=== PATIENT | female | born 1990 | race American Indian/Alaskan Native ===

== ENCOUNTER 2016-07-17 11:08 | Outpatient (CLI) | payer BC, MEDICAID ==
[2016-07-17 12:14] VITALS: BP 113/61
[2016-07-17 13:11] LABS: Bacteria,Urine 1+ /HPF (Negative); Bilirubin,Urine NEG (Negative); Blood,Urine NEG (Negative); Ketones,Urine NEG (Negative); Leukocyte Esterase,Urine LG (Negative); Mucus,Urine FEW /HPF; Nitrite,Urine NEG (Negative); Protein,Urine <15 mg/dL mg/dL (Negative); Urobilinogen,Urine < 2.0 mg/dL (<2.0)
[2016-07-17] MEDS ORDERED: LACTATED RINGERS 500 ML IV ONE (14:00)
== END 2016-07-17 13:47 | disposition home or self-care (01) ==
LOC: TRG 11:08
PROVIDERS: ATTEND Obstetrics & Gynecology
DX: O47.9 False labor, unspecified (principal); Z3A.00 Weeks of gestation of pregnancy not specified
CPT/HCPCS: 81001; 87086

== ENCOUNTER 2016-09-12 00:33 | Outpatient (CLI) | payer BC, MEDICAID | END 2016-09-12 02:50 | disposition home or self-care (01) | LOC: TRG 00:33 | PROVIDERS: ATTEND Obstetrics & Gynecology | DX: O62.9 Abnormality of forces of labor, unspecified (principal); Z3A.38 38 weeks gestation of pregnancy | CPT/HCPCS: 59025 ==

== ENCOUNTER 2016-09-19 09:50 | Inpatient (IN) | payer BC, MEDICAID ==
[2016-09-19] MEDS ORDERED: LACTATED RINGERS 1,000 ML ONE (10:13)
[2016-09-19] MEDS ORDERED: POLYCILLIN/NS 2 GM/100 ML 2 GM/100 ML BAG IV ONE (10:16)
[2016-09-19] MEDS ORDERED: SUBLIMAZE IV PRN (10:21)
[2016-09-19] MEDS ORDERED: ZOFRAN IV PRN (10:30)
--- NOTE | 2016-09-19 10:32 | History and Physical Report ---
History of Present Illness Date of examination: 09/19/16 (pt presents in active labor) History of present illness: EDC Calculations LMP: 09/23/2016 EDC Confirmation: 09/23/2016 Gestational Age: 6 weeks Past History : 3 Term Births: 2 Premature Births: 0 Living Children: 2 Para: 2 Mult. Births: 0 Prev : 0 Prev. attempt? 0 Aborta: 0 Elect. Ab: 0 Spont. Ab: 0 Ectopics: 0 # 1 Delivery date: 09/25/2007 Weeks Gestation: 38 labor: no Delivery type: Hours of labor: 13 Anesthesia type: epidural Delivery location: [place] [facility] Sex: Male weight: 7-? 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 of genital herpes: no Partner hx. of genital herpes: no Genetic History Congenital Heart Defect: Mom: no Dad: no Davida Disease: Mom: no Dad: no Thalassemia Mom: no Dad: no Neural Tube Defect Mom: no Dad: no Down's Syndrome Mom: no Dad: no Pablo-Sachs Mom: no Dad: no Sickle Cell Disease/Trait Mom: no Dad: no Hemophilia Mom: no Dad: no Muscular Dystrophy Mom: no Dad: no Cystic Fibrosis Mom: no Dad: no [place] Chorea Mom: no Dad: no Mental Retardation Mom: no Dad: no Fragile X Mom: no Dad: no Other Genetic/Chromosomal Disorder Mom: no Dad: no Child w/other defect Mom: no Dad: no Enviromental Exposures Xray Exposure: yes Medication, drug, or alcohol use since LMP: no Chemical/Other Exposure: no Exposure to Cat Liter: no Hx of Parvovirus (Fifth Disease): no Comments: hand 01/2016 Active Medications: None Current Allergies (reviewed today): No known allergies Laboratory Results Routine Urinalysis Leukocytes: negative Nitrite: negative Urobilinogen: negative Protein: 1+ Blood: negative Ketone: negative Bilirubin: negative Glucose: Negative Urine HCG: positive Review of Systems General Complains of fatigue. Denies fever, chills, sweats, anorexia, weakness, malaise, weight loss and sleep disorder. Complains of pelvic pain. Denies vaginal discharge, incontinence, dysuria, hematuria, urinary frequency, amenorrhea, menorrhagia, abnormal vaginal bleeding, genital sores, decreased libido, painful periods, painful sex, urinary urgency, hot flashes, vaginal dryness, vaginal itching and vaginal odor. CV Denies chest pains, palpitations, syncope, dyspnea on exertion, orthopnea, PND and peripheral edema. Resp Denies cough, dyspnea at rest, excessive sputum, hemoptysis, wheezing and pleurisy. GI Complains of nausea. Denies vomiting, diarrhea, constipation, change in bowel habits, abdominal pain, melena, hematochezia, jaundice, gas/bloating, indigestion/heartburn, dysphagia and odynophagia. Breast Complains of breast pain. Denies left breast lump, right breast lump, nipple discharge, bloody discharge from nipple, abnormal mammogram and breast enlargement. Psych Denies depression, anxiety, irritability and mood swings. PHYSICAL EXAM HEENT: normocephalic, no lesions or deformities Neck/Thyroid: supple, thyroid normal Skin no significant abnormal lesions or rashes Chest: respiratory effort normal, clear to auscultation Breasts: skin/areolae normal, no masses, no nipple discharge, no erythema/warmth /tenderness, and axillae normal. Nipple piecing present CV: regular, normal S1-S2, no murmur, no rub, no gallop Abdomen: normal bowel sounds, soft, nontender, no HSM Musculoskeletal: grossly normal ROM in joints, no joint tenderness or muscle weakness Neuro: no gross anomalities Extremities: no clubbing, cyanosis, or edema PEOPLE GREETER Exams Vulva/Vagina: normal appearance, white discharge, lesions. No evidence of cystocele or rectocele. Cervix: No lesions; no cervical motion tenderness Uterus: normal size and position, midline, mobile Adnexae: no masses or tenderness Rectovaginal: exam defered Past History - Obstetrical History Expected Date of Delivery: 09/23/16 Actual Gestation: 39 Week(s) 3 Day(s) : 4 Para: 2 (2nd baby adopted) Induced : 1 Number of Living Children: 2 Medications and Allergies Allergies Allergy/AdvReac Type Severity Reaction Status Date / Time No Known Allergies Allergy Unverified 07/17/16 12:47 - Vital Signs Vital signs: Vital Signs Pulse BP 85 126/75 09/19/16 10:10 09/19/16 10:10 Temp Pulse Resp BP Pulse Ox 98.3 F 82 22 126/75 100 09/19/16 10:18 09/19/16 10:20 09/19/16 10:18 09/19/16 10:18 09/19/16 10:20 - Physical Exam Breasts: Positive: deferred Cardiovascular: Regular rate, Normal S1, Normal S2 Lungs: Positive: Clear to auscultation, Normal air movement Abdomen: Positive: normal appearance, soft, normal bowel sounds. Negative: distention, tenderness Genitourinary (Female): Positive: normal external genitalia, normal perenium Vulva: both: normal Vagina: Positive: normal moisture. Negative: discharge Cervix: Negative: lesion, discharge Uterus: Positive: normal size, normal contour Adnexa: both: normal Anus/Rectum: Positive: normal perianal skin, heme negative. Negative: rectal mass, hemorrhoids Extremities: Positive: normal Deep Tendon Reflex Grade: Normal +2 - Obstetrical FHR: category 1 Uterine Contraction Monitor Mode: External Cervical Dilatation: 8 (BBOW) Cervical Effacement Percentage: 100 station: 0 Uterine Contraction Pattern: Regular Uterine Tone Measurement Phase: Resting Uterine Contraction Intensity: Moderate Results All other labs normal. Laboratory Data-Patient Name: JUSTA Garcia HEARD Test Date Result Blood Type 02/27/2016 B Rh 02/27/2016 Positive Antibody Screen negative Rubella 02/27/2016 IMMUNE Serology (RPR) 08/20/2016 NR HBsAg 02/27/2016 Negative Hemoglobin 06/04/2016 9.0 Hematocrit 06/04/2016 27.5 Platelets 02/27/2016 189 [id number] Chlamydia DNA 08/20/2016 Negative GC DNA/Culture 08/20/2016 Urine Culture 02/27/2016 Final report Group B Strep cult positive PAP 01/29/2016 Normal, Satisfactory HIV 08/20/2016 AFP/Quad Screen Glucola Test 3hr GTT (Fasting) 1 hr 2 hr 3 hr OPTIONAL LABS-Patient Name:JUSTA STONE Test Date Result Varicella Ab Sickle Cell 02/27/2016 Negative PPD Fibronectin Cystic Fibrosis Parvovirus TSH Free T4 Hepatitis C ALT AST Uric Acid Creatinine 24 hr Urine Protein IAN Assessment and Plan - Patient Problems (1) 39 weeks gestation of Current Visit: Yes Status: Acute Plan to address problem: 26yo @ 39 weeks in active labor 8cm dilated on admission GBS+ Orders in EMR Anticipate delivery.
--- NOTE | 2016-09-19 10:49 | Progress Note ---
Assessment and Plan - Patient Problems (1) 39 weeks gestation of Current Visit: Yes Status: Acute (2) Meconium in amniotic fluid Onset Date: ~09/19/16 Current Visit: Yes Status: Acute Plan to address problem: NICU and RT notified. Explained findings to pt and family. All questions addressed. Subjective - Subjective Date of service: 09/19/16 (SROM meconium) Interval history: EDC Calculations LMP: 09/23/2016 EDC Confirmation: 09/23/2016 Gestational Age: 6 weeks Past History : 3 Term Births: 2 Premature Births: 0 Living Children: 2 Para: 2 Mult. Births: 0 Prev : 0 Prev. attempt? 0 Aborta: 0 Elect. Ab: 0 Spont. Ab: 0 Ectopics: 0 # 1 Delivery date: 09/25/2007 Weeks Gestation: 38 labor: no Delivery type: Hours of labor: 13 Anesthesia type: epidural Delivery location: [place] [facility] Sex: Male weight: 7-? 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 of genital herpes: no Partner hx. of genital herpes: no Genetic History Congenital Heart Defect: Mom: no Dad: no Davida Disease: Mom: no Dad: no Thalassemia Mom: no Dad: no Neural Tube Defect Mom: no Dad: no Down's Syndrome Mom: no Dad: no Pablo-Sachs Mom: no Dad: no Sickle Cell Disease/Trait Mom: no Dad: no Hemophilia Mom: no Dad: no Muscular Dystrophy Mom: no Dad: no Cystic Fibrosis Mom: no Dad: no [place] Chorea Mom: no Dad: no Mental Retardation Mom: no Dad: no Fragile X Mom: no Dad: no Other Genetic/Chromosomal Disorder Mom: no Dad: no Child w/other defect Mom: no Dad: no Enviromental Exposures Xray Exposure: yes Medication, drug, or alcohol use since LMP: no Chemical/Other Exposure: no Exposure to Cat Liter: no Hx of Parvovirus (Fifth Disease): no Comments: hand 01/2016 Active Medications: None Current Allergies (reviewed today): No known allergies Laboratory Results Routine Urinalysis Leukocytes: negative Nitrite: negative Urobilinogen: negative Protein: 1+ Blood: negative Ketone: negative Bilirubin: negative Glucose: Negative Urine HCG: positive Review of Systems General Complains of fatigue. Denies fever, chills, sweats, anorexia, weakness, malaise, weight loss and sleep disorder. Complains of pelvic pain. Denies vaginal discharge, incontinence, dysuria, hematuria, urinary frequency, amenorrhea, menorrhagia, abnormal vaginal bleeding, genital sores, decreased libido, painful periods, painful sex, urinary urgency, hot flashes, vaginal dryness, vaginal itching and vaginal odor. CV Denies chest pains, palpitations, syncope, dyspnea on exertion, orthopnea, PND and peripheral edema. Resp Denies cough, dyspnea at rest, excessive sputum, hemoptysis, wheezing and pleurisy. GI Complains of nausea. Denies vomiting, diarrhea, constipation, change in bowel habits, abdominal pain, melena, hematochezia, jaundice, gas/bloating, indigestion/heartburn, dysphagia and odynophagia. Breast Complains of breast pain. Denies left breast lump, right breast lump, nipple discharge, bloody discharge from nipple, abnormal mammogram and breast enlargement. Psych Denies depression, anxiety, irritability and mood swings. PHYSICAL EXAM HEENT: normocephalic, no lesions or deformities Neck/Thyroid: supple, thyroid normal Skin no significant abnormal lesions or rashes Chest: respiratory effort normal, clear to auscultation Breasts: skin/areolae normal, no masses, no nipple discharge, no erythema/warmth /tenderness, and axillae normal. Nipple piecing present CV: regular, normal S1-S2, no murmur, no rub, no gallop Abdomen: normal bowel sounds, soft, nontender, no HSM Musculoskeletal: grossly normal ROM in joints, no joint tenderness or muscle weakness Neuro: no gross anomalities Extremities: no clubbing, cyanosis, or edema INDIGO MIXER Exams Vulva/Vagina: normal appearance, white discharge, lesions. No evidence of cystocele or rectocele. Cervix: No lesions; no cervical motion tenderness Uterus: normal size and position, midline, mobile Adnexae: no masses or tenderness Rectovaginal: exam defered Patient reports: movement normal Objective - Vital Signs Vital Signs: Vital Signs - 12hr 09/19/16 09/19/16 09/19/16 10:10 10:18 10:20 Temperature 98.3 F Pulse Rate 85 82 Pulse Rate [ 85 Right From Monitor] Respiratory 22 Rate Blood Pressure 126/75 Blood Pressure 126/75 [Left Arm] O2 Sat by Pulse 98 100 Oximetry 09/19/16 09/19/16 09/19/16 10:25 10:30 10:35 Temperature Pulse Rate 79 83 91 H Pulse Rate [ Right From Monitor] Respiratory Rate Blood Pressure Blood Pressure [Left Arm] O2 Sat by Pulse 100 100 98 Oximetry 09/19/16 09/19/16 10:40 10:41 Temperature Pulse Rate 86 74 Pulse Rate [ Right From Monitor] Respiratory Rate Blood Pressure Blood Pressure [Left Arm] O2 Sat by Pulse 100 66 L Oximetry - Exam Breasts: deferred Cardiovascular: Regular rate Lungs: Normal air movement Abdomen: Present: normal appearance, normal bowel sounds Uterus: Present: normal FHR: category 1 Uterine Contraction Monitor Mode: External Cervical Dilatation: 8 (thick meconium) Cervical Effacement Percentage: 70 station: -1 Uterine Contraction Pattern: Regular Uterine Contraction Intensity: Moderate Extremities: normal Deep Tendon Reflex Grade: Normal +2
[2016-09-19] MEDS ORDERED: PITOCin/NS 20 UNIT/1000ML DRIP 20 UNITS/1,000 ML BAG IV SCH (11:00)
[2016-09-19] MEDS ORDERED: LACTATED RINGERS 1,000 ML IV SCH (11:00)
[2016-09-19 11:25] LABS: Hematocrit 27.4 % (30.3-42.9); Hemoglobin 8.3 gm/dl (10.1-14.3); Mean Corpuscular HGB Conc 31 % (30-34); Mean Corpuscular Volume 73 fl (79-97); Platelet Count 189 K/mm3 (140-440); Red Blood Count 3.77 M/mm3 (3.65-5.03); White Blood Count 9.5 K/mm3 (4.5-11.0)
[2016-09-19 11:28] LABS: Mean Corpuscular Hemoglobin 22 pg (28-32)
[2016-09-19] MEDS ORDERED: ePHEDrine SULFATE IV PRN (11:30)
[2016-09-19] MEDS ORDERED: BRETHINE SUB-Q PRN (11:30)
[2016-09-19] MEDS ORDERED: BRETHINE IVP PRN (11:30)
[2016-09-19] MEDS ORDERED: MINERAL OIL PO PRN (11:30)
[2016-09-19] MEDS ORDERED: XYLOCAINE 2% INFILTRATI ONE (11:30)
[2016-09-19] MEDS ORDERED: METHERGINE IM ONE ×2 (11:49→12:12)
[2016-09-19] MEDS ORDERED: CYTOTEC ONE (11:53)
[2016-09-19] MEDS ORDERED: PITOCin/NS 30 UNIT/500ML 30 UNITS/500 ML BAG IV SCH (12:00)
[2016-09-19] MEDS ORDERED: CYTOTEC PR ONE (12:12)
[2016-09-19] MEDS ORDERED: NORCO 5/325 PO PRN (12:16)
[2016-09-19] MEDS ORDERED: MILK OF MAGNESIA PO PRN (12:16)
[2016-09-19] MEDS ORDERED: HEMABATE IM SCH (12:16)
[2016-09-19] MEDS ORDERED: BENADRYL PO PRN (12:16)
[2016-09-19] MEDS ORDERED: LANSINOH TP PRN (12:16)
[2016-09-19] MEDS ORDERED: TYLENOL PO PRN (12:16)
[2016-09-19] MEDS ORDERED: PHENERGAN PO PRN (12:16)
[2016-09-19] MEDS ORDERED: TUCKS PAD TP PRN (12:16)
[2016-09-19] MEDS ORDERED: DULCOLAX PR PRN (12:16)
[2016-09-19] MEDS ORDERED: DERMOPLAST TP PRN (12:16)
--- NOTE | 2016-09-19 12:33 | Procedure Note ---
OB Delivery Note - Delivery Date of Delivery: 09/19/16 Scallop Raker: ANAMARIA PRESSLEY Estimated blood loss: other (800cc) - Vaginal Delivery presentation: vertex Delivery position: OA Intrapartum events: meconium, hemorrhage (800cc BL) Delivery induction: none Delivery augmentation: rupture of membranes (thick meconium) Delivery monitor: external FHT, external uterine Route of delivery: Delivery placenta: spontaneous Delivery cord: 3 umbilical vessels Episiotomy: none Delivery laceration: none Anesthesia: intravenous Delivery comments: NICU/RT present for delivery due to meconium. live born female over intact perineum Baby passed to waiting NICU team. Placenta and membrane delivered complete and intact, 3 vessel cord. 8/9, Wgt 7-6. After clean up Large gush of blood noted. Uterus massaged Several large clots removed. Methergin IM given. Again large gush of blood, uterus massaged and clots removed. Cytotec 800mcg MN. Noted that IV had become disconnected and pitocin was not infusing. IV now infusing pitocin. FF @ umb Lochia mod. Pt OOB to toilet to void. No evidence of dizziness, ambulated w/o difficulty. CBC ordered for 1700. Mom and baby remain LDR stable. - Infant A at 1 minute: 8 at 5 minutes: 9 Infant Gender: Female (wgt 7-6)
[2016-09-19] MEDS ORDERED: SODIUM CHLORIDE FLUSH SYRINGE 10 ML IV SCH (13:00)
[2016-09-19] MEDS: MOTRIN PO SCH ×2 (18:25→23:51)
[2016-09-19 18:49] LABS: Basophils % (Auto) 0.1 % (0.0-1.8); Hematocrit 23.1 % (30.3-42.9); Hemoglobin 6.9 gm/dl (10.1-14.3); Mean Corpuscular HGB Conc 30 % (30-34); Mean Corpuscular Hemoglobin 22 pg (28-32); Mean Corpuscular Volume 73 fl (79-97); Platelet Count 160 K/mm3 (140-440); Red Blood Count 3.18 M/mm3 (3.65-5.03); Red Cell Distribution Width 19.2 % (13.2-15.2); White Blood Count 13.8 K/mm3 (4.5-11.0)
[2016-09-19] MEDS ORDERED: NACL 0.9% 500 ML 500 ML IV SCH (19:04)
--- NOTE | 2016-09-19 19:13 | Event Note ---
Date: 09/19/16 (drop in H&H; will transfuse) Consulted with due to drop in H&H to 6.9/23.1 after delivery decision made to transfuse 2 units PRC. Orders in EMR Pt is chronically anemic. EBL @ [facility] 800ml
[2016-09-19] MEDS ORDERED: TYLENOL PO ONE (20:00)
[2016-09-19] MEDS: FEOSOL PO SCH (20:45)
--- NOTE | 2016-09-19 21:38 | Event Note ---
Date: 09/19/16 sitting on the side of the bed with baby. Complains of fatigue. Options reviewed , she agrees with PRBC transfusion. Bleeding normal.
[2016-09-20] MEDS ORDERED: BOOSTRIX IM ONE (06:00)
[2016-09-20] MEDS: MOTRIN PO SCH ×3 (06:00→17:45)
[2016-09-20 07:05] LABS: Hematocrit 27.1 % (30.3-42.9); Hemoglobin 8.4 gm/dl (10.1-14.3)
--- NOTE | 2016-09-20 08:26 | Progress Note ---
Assessment and Plan Patient w/o complaints, denies s/s anemia, post transfusion H&H stable and comparable to admission H&H. LEXIE Lopez. Plan for d/c home tomorrow if stable. - Patient Problems (1) Hemorrhage after delivery of fetus Current Visit: Yes Status: Acute Qualifiers: hemorrhage type: P (2) Spontaneous vaginal delivery Current Visit: Yes Status: Acute (3) Anemia, iron deficiency Current Visit: Yes Status: Acute Qualifiers: Iron deficiency anemia type: inadequate dietary iron intake Qualified Code( s): D50.8 - Other iron deficiency anemias Plan to address problem: patient asymptomatic H&H post transfusion 8.10/31.1 will d/c with po iron Subjective - Subjective Date of service: 09/20/16 Principal diagnosis: poastpartum day #1 s/p , PPH, transfusion Patient reports: appetite normal, voiding normally, pain well controlled, ambulating normally : doing well, nursing well (breast and bottle feeding) Objective - Vital Signs Latest vital signs: Vital Signs Temp Pulse Pulse Pulse Resp BP BP 09/20/16 04:10 98.4 F 88 18 115/74 09/20/16 03:15 98.5 F 63 18 108/70 09/20/16 02:45 98.5 F 62 18 112/63 09/20/16 02:15 98.5 F 65 18 106/60 09/20/16 01:45 98.7 F 63 18 102/59 09/20/16 01:15 98.0 F 94 H 18 117/75 09/20/16 01:00 98.7 F 70 18 117/67 09/20/16 00:06 98.5 F 70 17 120/69 09/19/16 23:36 98.5 F 73 18 121/69 09/19/16 23:06 98.6 F 77 18 117/65 09/19/16 22:36 98.9 F 88 16 118/68 09/19/16 22:21 98.5 F 86 18 120/66 09/19/16 20:45 18 09/19/16 20:00 98.5 F 86 18 120/66 09/19/16 17:08 98.3 F 82 18 114/50 09/19/16 14:24 20 09/19/16 13:30 80 09/19/16 13:25 78 09/19/16 13:20 73 09/19/16 13:16 75 120/61 09/19/16 13:02 78 119/58 09/19/16 12:56 87 09/19/16 12:51 70 09/19/16 12:46 78 128/78 09/19/16 12:41 77 09/19/16 12:36 83 09/19/16 12:31 88 127/92 09/19/16 12:26 85 09/19/16 12:21 84 09/19/16 12:16 82 09/19/16 11:54 85 126/59 09/19/16 11:36 73 09/19/16 11:32 82 121/58 09/19/16 11:31 97 H 09/19/16 11:26 92 H 09/19/16 11:24 96 H 09/19/16 11:21 73 09/19/16 11:16 74 09/19/16 11:11 105 H 09/19/16 11:06 111 H 09/19/16 11:01 86 09/19/16 10:56 93 H 09/19/16 10:50 20 09/19/16 10:41 74 09/19/16 10:40 86 09/19/16 10:35 91 H 09/19/16 10:30 83 09/19/16 10:25 79 09/19/16 10:20 82 09/19/16 10:18 98.3 F 85 22 126/75 09/19/16 10:10 85 126/75 Pulse Ox 09/20/16 04:10 09/20/16 03:15 09/20/16 02:45 09/20/16 02:15 09/20/16 01:45 09/20/16 01:15 09/20/16 01:00 09/20/16 00:06 09/19/16 23:36 09/19/16 23:06 09/19/16 22:36 09/19/16 22:21 09/19/16 20:45 09/19/16 20:00 09/19/16 17:08 09/19/16 14:24 09/19/16 13:30 100 09/19/16 13:25 100 09/19/16 13:20 100 09/19/16 13:16 09/19/16 13:02 09/19/16 12:56 97 09/19/16 12:51 100 09/19/16 12:46 100 09/19/16 12:41 100 09/19/16 12:36 100 09/19/16 12:31 100 09/19/16 12:26 100 09/19/16 12:21 100 09/19/16 12:16 100 09/19/16 11:54 09/19/16 11:36 63 L 09/19/16 11:32 09/19/16 11:31 88 09/19/16 11:26 99 09/19/16 11:24 88 09/19/16 11:21 98 09/19/16 11:16 98 09/19/16 11:11 98 09/19/16 11:06 100 09/19/16 11:01 99 09/19/16 10:56 98 09/19/16 10:50 09/19/16 10:41 66 L 09/19/16 10:40 100 09/19/16 10:35 98 09/19/16 10:30 100 09/19/16 10:25 100 09/19/16 10:20 100 09/19/16 10:18 98 09/19/16 10:10 Intake and Output 09/19/16 09/20/16 09/20/16 22:59 06:59 14:59 Intake Total 980 1100 Output Total 300 400 Balance 680 700 Intake: IV 500 Left Forearm 125 PITOCin/NS 20 UNIT/1000ML 375 DRIP 20 units In 1,000 ml @ 125 mls/hr IV DIRECT LEFTY Rx#:[id number] Oral 480 480 Intake, Free Water 120 Blood Product 0 500 Leukoreduced Red Blood 0 250 Cells Unit [id number] Leukoreduced Red Blood 250 Cells Unit [id number] Output: Urine 300 400 Void 300 400 Other: Total, Intake Amount 360 240 Total, Output Amount 300 400 # Voids Void 1 1 - Exam Breasts: Present: normal, Cardiovascular: Present: Regular rate Lungs: Present: Clear to auscultation, Normal air movement Abdomen: Present: normal appearance, soft, normal bowel sounds Vulva: both: normal Uterus: Present: normal, firm, fundal height at umbilicus Extremities: Present: normal - Labs Labs: Abnormal lab results 09/19/16 09/19/16 09/19/16 Range/Units 10:20 10:20 18:15 WBC 13.8 H (4.5-11.0) K/mm3 RBC 3.18 L (3.65-5.03) M/mm3 Hgb 8.3 L 6.9 L (10.1-14.3) gm/dl Hct 27.4 L 23.1 L (30.3-42.9) % MCV 73 L 73 L (79-97) fl MCH 22 L 22 L (28-32) pg RDW 19.0 H 19.2 H (13.2-15.2) % Lymph % (Auto) 10.1 L (13.4-35.0) % [place] # 0.9 H (0.0-0.8) K/mm3 Seg Neutrophils % 83.0 H (40.0-70.0) % Seg Neutrophils # 11.4 H (1.8-7.7) K/mm3 Crossmatch See Detail 09/20/16 Range/Units 06:55 WBC (4.5-11.0) K/mm3 RBC (3.65-5.03) M/mm3 Hgb 8.4 L (10.1-14.3) gm/dl Hct 27.1 L (30.3-42.9) % MCV (79-97) fl MCH (28-32) pg RDW (13.2-15.2) % Lymph % (Auto) (13.4-35.0) % [place] # (0.0-0.8) K/mm3 Seg Neutrophils % (40.0-70.0) % Seg Neutrophils # (1.8-7.7) K/mm3 Crossmatch
[2016-09-20] MEDS: FEOSOL PO SCH ×2 (08:40→14:55)
[2016-09-20] MEDS: COLACE PO SCH (10:45)
[2016-09-20] MEDS: PRENATAL VITAMIN PO SCH (10:45)
[2016-09-20] MEDS ORDERED: M-M-R II VACCINE SUB-Q ONE (12:16)
[2016-09-21] MEDS: COLACE PO SCH ×3 (00:50→10:42)
[2016-09-21] MEDS: FEOSOL PO SCH ×2 (00:58→07:54)
[2016-09-21] MEDS: MOTRIN PO SCH ×2 (05:00)
--- NOTE | 2016-09-21 08:45 | Discharge Summary ---
Providers - Providers Date of Admission: 09/19/16 10:11 Date of discharge: 09/21/16 (pt agrees with d/c) Attending physician: ABIOLA PETERS Primary care physician: ABIOLA PETERS Hospitalization Reason for admission: active labor, IUP at term Delivery: Episiotomy: none Laceration: none Incision: normal Other procedures: none complications: transfusion (H&H back to adm level after transfusion) Discharge diagnosis: IUP at term delivered [place] baby: female Hospital course: uncomplicated vaginal delivery Hemorrhage - Transfusion 2 units PRC Pt states she feels much better today Desires d/c VSS FF below umb Lochia small perineum intact H&H 8.4/27.1 post transfusion. Pt w/o s/sx of anemia. Doing well s/p vag del P: d/c today with instructions RTO 4 weeks RX provided. Condition at discharge: Good Disposition: DISCHARGED TO HOME OR SELFCARE - Discharge Diagnoses (1) Hemorrhage after delivery of fetus Status: Acute Qualifiers: hemorrhage type: P Comment: pt given rx po iron increase iron rich foods (2) Spontaneous vaginal delivery Status: Acute Comment: rto 4 weeks desires tubal for BC Plan - Discharge Medications Prescriptions: Docusate Sodium [Colace] 100 mg PO BID PRN #60 capsule PRN Reason: Constipation Ferrous Sulfate [Feosol 325 MG tab] 325 mg PO BID #60 tablet Ibuprofen [Motrin 800 MG tab] 800 mg PO TID PRN #30 tablet PRN Reason: Pain - Provider Discharge Summary Activity: routine, no sex for 6 weeks, no heavy lifting 4 weeks, no strenuous exercise Diet: other (increase iron rich foods) Instructions: routine Additional instructions: [] Smoking cessation referral if applicable(refer to patient education folder for contact #) [] Refer to [facility]'s [facility] Booklet Call your doctor immediately for: * Fever > 100.5 * Heavy vaginal bleeding ( >1 pad per hour) * Severe persistent headache * Shortness of breath * Reddened, hot, painful area to leg or breast * Drainage or odor from incision. * Keep incision clean and dry at all times and follow doctor's instructions regarding bathing/showering - Follow up plan Follow up: ABIOLA PETERS MD [Primary Care Provider] - 10/21/16 (Congratulations! Please call [phone] to schedule your visit in 4 weeks. Take medications as prescribed. Call with concerns. )
[2016-09-21 08:47] VITALS: BP 107/65
[2016-09-21] MEDS: PRENATAL VITAMIN PO SCH (10:43)
== END 2016-09-21 12:40 | disposition home or self-care (01) | DRG 774 ==
LOC: TRG 09:50 → LD 10:11 → OB 13:41
PROVIDERS: ADMIT Obstetrics & Gynecology; ATTEND Obstetrics & Gynecology
PROC: 10E0XZZ Delivery of Products of Conception, External Approach (ICD-10-PCS; principal; 2016-09-19)
PROC: 30233N1 Transfusion of Nonautologous Red Blood Cells into Peripheral Vein, Percutaneous Approach (ICD-10-PCS; 2016-09-19)
DX: O77.0 Labor and delivery complicated by meconium in amniotic fluid (principal); O72.1 Other immediate postpartum hemorrhage; D50.8 Other iron deficiency anemias; O99.820 Streptococcus B carrier state complicating pregnancy; Z3A.39 39 weeks gestation of pregnancy; Z37.0 Single live birth
CPT/HCPCS: 36415; 85014; 85018; 85025; 85027; 86592; 86850; 86900; 86901; 86920; 90471; 99211; G0463; J0290; J2210; J2590; J3010; J7040; J7120; P9016

== ENCOUNTER 2020-12-29 20:01 | Emergency (ER) | payer BC, MEDICAID ==
[2020-12-29 22:33] VITALS: BP 102/62
[2020-12-29] MEDS ORDERED: ACETAMINOPHEN 325 MG TAB PO ONE (22:34)
[2020-12-29 23:07] LABS: Bilirubin,Urine NEG (Negative); Blood,Urine LG (Negative); Color,Urine Yellow (Yellow); Mucus,Urine 2+ /HPF; Protein,Urine <15 mg/dL mg/dL (Negative); Urobilinogen,Urine < 2.0 mg/dL (<2.0); WBC,Urine < 1.0 /HPF (0.0-6.0)
[2020-12-29 23:10] LABS: HCG Qualitative,Urine Negative (Negative)
[2020-12-30 01:25] LABS: Basophils % (Auto) 0.4 % (0.0-1.8); Eosinophils # (Auto) 0.1 K/mm3 (0.0-0.4); Eosinophils % (Auto) 1.1 % (0.0-4.3); Hematocrit 33.9 % (30.3-42.9); Hemoglobin 11.1 gm/dl (10.1-14.3); Lymphocytes # (Auto) 2.1 K/mm3 (1.2-5.4); Lymphocytes % (Auto) 37.8 % (13.4-35.0); Mean Corpuscular HGB Conc 33 % (30-34); Mean Corpuscular Volume 84 fl (79-97); Monocytes # (Auto) 0.6 K/mm3 (0.0-0.8); Monocytes % (Auto) 10.2 % (0.0-7.3); Platelet Count 211 K/mm3 (140-440); Red Blood Count 4.02 M/mm3 (3.65-5.03); Red Cell Distribution Width 17.9 % (13.2-15.2)
[2020-12-30 01:40] LABS: Alanine Aminotransferase 9 units/L (7-56); Albumin 4.4 g/dL (3.9-5); Blood Urea Nitrogen 9 mg/dL (7-17); Calcium 9.2 mg/dL (8.4-10.2); Hemolysis Index 4
[2020-12-30 01:46] LABS: BUN/Creatinine Ratio 13
--- NOTE | 2020-12-30 03:09 | Ultrasound Report ---
Pelvic ultrasound INDICATION: Pelvic pain FINDINGS: Uterus measures about 9 x 5 x 7 cm. Intrauterine device present. The right ovary is normal. Left ovary appears mildly enlarged measuring 4.7 x 2.1 x 4.4 cm. There is some increased Doppler anais w within the left ovary. IMPRESSION: Mildly enlarged left ovary with evidence of flow within the left ovary. Intrauterine gabriel ce noted. Signer Name: Norberto Rivera MD Signed: 12/30/2020 3:04 AM Workstation Name: [id number]
--- NOTE | 2020-12-30 03:49 | Emergency Department Report ---
ED Female HPI - General Chief complaint: Urogenital-Female Stated complaint: CRAMPS Source: patient Mode of arrival: Ambulatory Limitations: No Limitations - History of Present Illness Initial comments: Patient is a A0 30-year-old -Maldivian female with no past medical history presents to the ED with complaint of acute onset persistent severe pelvic pain that radiates to the lower back for the last 2 days, worse in the last 12 hours. Patient states that she is currently on her menstrual cycle which started 2 days ago. Patient states that she usually experiences dysmenorrhea but states that this current pain with her menstrual cycle is worse than she has ever had. Patient denies fever, chills, dysuria, vaginal discharge, nausea and vomiting, diarrhea, dyspareunia, cough, sore throat, change in vision, dizziness, syncope, chest pain or shortness of breath. MD Complaint: pelvic pain, other (lower back pain, bilateral flank pain) -: Sudden, days(s) (2) Location: suprapubic Radiation: suprapubic, L flank, R flank, other (lower back pain) Severity: severe Severity scale (0 -10): 8 Quality: cramping, sharp Consistency: constant Improves with: none Worsens with: menstrual period Are you Now?: No (Currently on menstrual cycle) Last Menstrual Period: 12/26/20 EDC: 10/02/21 Associated Symptoms: denies other symptoms, vaginal bleeding, abdominal pain (Suprapubic pain). denies: vaginal discharge, nausea/vomiting, fever/chills, headaches, loss of appetite, dysuria, hematuria, rash, seizure, shortness of breath, syncope - Related Data Sexually active: Yes : 3 Para: 3 A: 0 Previous Rx's Medication Instructions Recorded Last Taken Type Docusate Sodium [Colace] 100 mg PO BID PRN #60 capsule 09/21/16 Unknown Rx Ferrous Sulfate [Feosol 325 MG tab] 325 mg PO BID #60 tablet 09/21/16 Unknown Rx Ibuprofen [Motrin 800 MG tab] 800 mg PO TID PRN #30 tablet 09/21/16 Unknown Rx Ibuprofen [Motrin] 800 mg PO Q8HR PRN #30 tablet 12/30/20 Unknown Rx Allergies Allergy/AdvReac Type Severity Reaction Status Date / Time No Known Allergies Allergy Unverified 07/17/16 12:47 ED Review of Systems ROS: Stated complaint: CRAMPS Other details as noted in HPI Constitutional: denies: chills, fever Eyes: denies: eye pain, eye discharge, vision change ENT: denies: ear pain, throat pain Respiratory: denies: cough, shortness of breath, wheezing Cardiovascular: denies: chest pain, palpitations Endocrine: no symptoms reported Gastrointestinal: abdominal pain (Suprapubic pain). denies: nausea, vomiting, diarrhea Genitourinary: abnormal menses (Vaginal bleeding due to menstrual cycle). denies: urgency, dysuria, frequency, discharge Musculoskeletal: back pain (Low back pain). denies: joint swelling, arthralgia Skin: denies: rash, lesions Neurological: denies: headache, weakness, paresthesias Psychiatric: denies: anxiety, depression Hematological/Lymphatic: denies: easy bleeding, easy bruising ED Past Medical Hx - Past Medical History Previous Medical History?: No Hx Hypertension: No Hx Congestive Heart Failure: No Hx Diabetes: No Hx Deep Vein Thrombosis: No Hx Renal Disease: No Hx Sickle Cell Disease: No Hx Seizures: No Hx Asthma: No Hx COPD: No Hx HIV: No - Surgical History Past Surgical History?: No - Social History Smoking Status: Never Smoker Substance Use Type: None - Medications Home Medications: Home Medications Medication Instructions Recorded Confirmed Last Taken Type Docusate Sodium [Colace] 100 mg PO BID PRN #60 capsule 09/21/16 Unknown Rx Ferrous Sulfate [Feosol 325 MG tab] 325 mg PO BID #60 tablet 09/21/16 Unknown Rx Ibuprofen [Motrin 800 MG tab] 800 mg PO TID PRN #30 tablet 09/21/16 Unknown Rx Ibuprofen [Motrin] 800 mg PO Q8HR PRN #30 tablet 12/30/20 Unknown Rx ED Physical Exam - General Limitations: No Limitations General appearance: alert, in no apparent distress - Head Head exam: Present: atraumatic, normocephalic, normal inspection - Eye Eye exam: Present: normal appearance, PERRL, EOMI Pupils: Present: normal accommodation - ENT ENT exam: Present: normal exam, normal orophraynx, mucous membranes moist, TM's normal bilaterally, normal external ear exam - Neck Neck exam: Present: normal inspection, full ROM - Respiratory Respiratory exam: Present: normal lung sounds bilaterally. Absent: respiratory distress, wheezes, rales, rhonchi, chest wall tenderness, accessory muscle use, prolonged expiratory, other - Cardiovascular Cardiovascular Exam: Present: regular rate, normal rhythm, normal heart sounds. Absent: systolic murmur, diastolic murmur, rubs, gallop - GI/Abdominal GI/Abdominal exam: Present: soft, tenderness (Palpable suprapubic tenderness, no guarding or rebound), normal bowel sounds. Absent: guarding, rebound, hyperactive bowel sounds, hypoactive bowel sounds, organomegaly, mass - Bi-manual exam: Present: other (Pelvic exam deferred at this time) - Extremities Exam Extremities exam: Present: normal inspection, full ROM, normal capillary refill - Back Exam Back exam: Present: normal inspection, full ROM. Absent: tenderness, CVA tenderness (R), CVA tenderness (L), muscle spasm, paraspinal tenderness, vertebral tenderness - Neurological Exam Neurological exam: Present: alert, oriented X3, CN II-XII intact, normal gait, reflexes normal - Psychiatric Psychiatric exam: Present: normal affect, normal mood - Skin Skin exam: Present: warm, dry, intact, normal color. Absent: rash ED Course Vital Signs 12/29/20 22:26 Temperature 98.5 F Pulse Rate 67 Respiratory 18 Rate Blood Pressure 102/62 O2 Sat by Pulse 99 Oximetry ED Medical Decision Making - Lab Data Result diagrams: 12/30/20 00:54 12/30/20 00:54 - Radiology Data Radiology results: report reviewed, image reviewed [facility] [address] [place] [address] Ultrasound Report Signed Patient: JUSTA STONE MR#: [id number] : 1990 Acct:[id number] Age/Sex: 30 / F ADM Date: 12/29/20 Loc: ED Attending Dr: Ordering Physician: SIMRAN COLEY Date of Service: 12/30/20 Procedure(s): US pelvic complete Accession Number(s): [id number] cc: SIMRAN COLEY Pelvic ultrasound INDICATION: Pelvic pain FINDINGS: Uterus measures about 9 x 5 x 7 cm. Intrauterine device present. The right ovary is normal. Left ovary appears mildly enlarged measuring 4.7 x 2.1 x 4.4 cm. There is some increased Doppler flow within the left ovary. IMPRESSION: Mildly enlarged left ovary with evidence of flow within the left ovary. Intrauterine device noted. Signer Name: Norberto Rievra MD Signed: 12/30/2020 3:04 AM Workstation Name: [id number] Transcribed By: YANCY Dictated By: Norberto Rivera MD Electronically Authenticated By: Norberto Rivera MD Signed Date/Time: 12/30/20303 DD/ 2 TD/TT: - Medical Decision Making This is a A0 30-year-old -Maldivian female with no past medical history presents to the ED with complaint of acute onset persistent severe pelv ic pain that radiates to the lower back for the last 2 days, worse in the last 12 hours. Patient states that she is currently on her menstrual cycle which started 2 days ago. Patient states that she usually experiences dysmenorrhea but states that this current pain with her menstrual cycle is worse than she has ever had. In the ED, patient is alert and oriented x3 and is not in distress. Patient was treated for pain in the ED. Lab test results were reviewed and are all nonactionable. Pelvic ultrasound showed normal right ovary, but a mildly enlarged left ovary with evidence of flow within the left ovary. Intrauterine device noted. On reevaluation, patient's pain is well controlled medication. Patient symptoms are likely due to severe dysmenorrhea. Patient was therefore discharged home on pain medications and advised to follow-up with her primary care physician or [facility] physician in 5 to 7 days for reevaluation or return to the ED immediately if symptoms get worse. - Differential Diagnosis Dysmenorrhea; UTI; ovarian cyst; ; colitis; kidney stones Critical care attestation.: If time is entered above; I have spent that time in minutes in the direct care of this critically ill patient, excluding procedure time. ED Disposition Clinical Impression: Severe dysmenorrhea, Acute pelvic pain, female Disposition: TO HOME OR SELFCARE Is pt being admited?: No Does the pt Need Aspirin: No Condition: Stable Instructions: Pelvic Pain, Female, [id number], Dysmenorrhea, [id number] Additional Instructions: All lab test results were reviewed and are all nonactionable. The pelvic ultrasound showed no acute abnormalities, the IUD is in place. Therefore your symptoms are due to severe dysmenorrhea due to your menstrual cycle. Therefore take medication with food, drink plenty of fluids and follow-up with your [facility] physician in 5 to 7 days for reevaluation. Return to the ED immediately if symptoms get worse. Prescriptions: Ibuprofen [Motrin] 800 mg PO Q8HR PRN #30 tablet PRN Reason: Pain , Severe (7-10) Referrals: RAUDEL KEENE MD [Staff Physician] - 3-5 Days Forms: Work/School Release Form(ED) Time of Disposition: 03:52 Print Language: VENEZUELAN
== END 2020-12-30 04:16 | disposition home or self-care (01) ==
LOC: ED 20:01
DX: N94.6 Dysmenorrhea, unspecified (principal); R10.2 Pelvic and perineal pain; Z79.899 Other long term (current) drug therapy
CPT/HCPCS: 36415; 76856; 80053; 81001; 81025; 85025

== ENCOUNTER 2022-03-12 12:58 | Emergency (ER) | payer SELFPAY ==
[2022-03-12 13:09] VITALS: BP 106/64
== END 2022-03-12 14:00 | disposition left against medical advice (07) ==
LOC: ED 12:58
DX: J02.9 Acute pharyngitis, unspecified (principal); Z53.21 Procedure and treatment not carried out due to patient leaving prior to being seen by health care provider